=== PATIENT | female | born 1950 ===

== ENCOUNTER 2019-03-26 13:50 | Outpatient (CLI) | payer OTHER | END 2019-03-26 13:57 | disposition home or self-care (01) | LOC: MAMO-SONO 13:50 | DX: Z12.31 Encounter for screening mammogram for malignant neoplasm of breast (principal); Z87.898 Personal history of other specified conditions; N60.11 Diffuse cystic mastopathy of right breast; N60.12 Diffuse cystic mastopathy of left breast ==

== ENCOUNTER 2021-08-02 12:06 | Outpatient (CLI) | payer OTHER | END 2021-08-02 12:16 | disposition home or self-care (01) | LOC: SONOGRAMA 12:06 | PROVIDERS: ATTEND Specialist | DX: N95.1 Menopausal and female climacteric states (principal) ==

== ENCOUNTER 2023-03-07 14:04 | Outpatient (CLI) | payer OTHER | END 2023-03-07 14:21 | disposition home or self-care (01) | LOC: MAMO-SONO 14:04 | PROVIDERS: ATTEND Family Medicine | DX: Z12.31 Encounter for screening mammogram for malignant neoplasm of breast (principal) ==

== ENCOUNTER 2023-03-12 09:05 | Outpatient (CLI) | payer OTHER | END 2023-03-12 09:06 | disposition home or self-care (01) | LOC: NUCLEAR 09:05 | PROVIDERS: ATTEND Family Medicine | DX: M81.0 Age-related osteoporosis without current pathological fracture (principal) ==

== ENCOUNTER 2025-05-25 09:07 | Outpatient (CLI) | payer OTHER | END 2025-05-25 09:12 | disposition home or self-care (01) | LOC: MAMO-SONO 09:07 | PROVIDERS: ATTEND Family Medicine | DX: N60.19 Diffuse cystic mastopathy of unspecified breast (principal); Z12.31 Encounter for screening mammogram for malignant neoplasm of breast ==

== ENCOUNTER → 2025-06-09 11:12 | Outpatient (CLI) | payer OTHER | END | disposition home or self-care (01) | LOC: NUCLEAR 11:12 | PROVIDERS: ATTEND Family Medicine | DX: M85.80 Other specified disorders of bone density and structure, unspecified site (principal); M81.0 Age-related osteoporosis without current pathological fracture ==